=== PATIENT | female | born 1960 | race Caucasian/White ===

== ENCOUNTER → 2025-01-16 | Outpatient (CLI) | payer MEDICARE, MEDICAID, SELFPAY ==
--- NOTE | 2025-01-16 15:59 | XR_ITS ---
Examination: Bilateral AP knees single view PA lateral axial right and left knees total 6 views TECHNIQUE: Bilateral AP knees standing single view Standing PA, lateral, axial right and left knees 6 views total 7 views Date and time: January 16, 2025 1605 hours INDICATIONS: Patient fell 2 weeks ago with injury to both knees, bilateral knee pain 5 years. FINDINGS: Moderate osteopenia Severe narrowing, [id number], medial joint spaces right and left knee. Significant osteoarthritis lateral patellofemoral joints No patellar dislocation IMPRESSION: Advanced bilateral tricompartment osteoarthritis Severe narrowing, [id number] medial joint spaces right and left knee.
== END | disposition home or self-care (01) ==
LOC: COPL 16:44 → CDIM 02-04 13:13
PROVIDERS: PCP Family Medicine; Referring Provider Orthopaedic Surgery Adult Reconstructive Orthopaedic Surgery; Visit Provider Orthopaedic Surgery Adult Reconstructive Orthopaedic Surgery
DX: M17.0 Bilateral primary osteoarthritis of knee (principal); M25.862 Other specified joint disorders, left knee; M25.861 Other specified joint disorders, right knee
CPT/HCPCS: 73564

== ENCOUNTER 2025-01-22 14:04 | Outpatient (AMB) | payer MEDICARE, MEDICAID, SELFPAY ==
--- NOTE | 2025-01-22 14:09 | PD.ORTHCLVIS ---
Vital signs 01/22/25 14:15 Height 1.65 m Height Method Measured Weight 105.375 kg Weight Measurement Method Standing Scale BMI 38.6 BP 125/84 Blood Pressure Source Automatic Cuff Blood Pressure Location Left Upper Arm Position Sitting Respiration 18 Pulse 104 H Pulse Source Monitor Temp 97.7 F Temp Source Temporal Artery Scan Pulse Oximetry (%) 95 Oxygen Delivery Method Room Air Med/Allergies Allergies & Medications Allergies No Known Allergies Allergy (Verified 01/22/25 14:16) Medication Reconciliation Unobtainable 04/12/23 [History Confirmed 01/22/25] Exam Exam Patient is in no acute distress and is cooperative with the examination today. Breathing is nonlabored. In no respiratory distress. Bilateral extremities were evaluated and demonstrates sensation intact to light touch. Palpable pedal pulses are present. No significant edema is present. Bilateral hips were examined. The patient has no pain with log roll of the hips. Internal rotation to 30 degrees and external rotation to 30 degrees is painless. Negative FADIR. The left knee was examined. The left knee is in varus alignment. Range of motion from 0-115 degrees. Knee is stable to varus and valgus as well as AP translation with <5mm. Patient has a negative McMurrays. There is no pain with patellofemoral compression and no crepitus noted. The knee is tender to palpation medially. The right knee was also examined. The right knee is in varus alignment. Range of motion from 0-120 degrees. Knee is stable to varus and valgus as well as AP translation with <5mm. Patient has a negative McMurrays. There is no pain with patellofemoral compression and no crepitus noted. The knee is tender to palpation medially. Bilateral knee x-rays were reviewed by me today. This demonstrates complete joint space obliteration medially. There is varus deformity Assessment and Plan Problem List (1) Arthritis of both knees: Status: Acute Plan: Patient is a 62-year-old female with bilateral knee pain and osteoarthritis. Pain is of significant severity and is affecting her quality of life. She cannot take anti-inflammatories because of her recent gastric surgery. She has tried over 3 injections and NSAIDs. The pain is affecting her quality of life and happiness. The nature and purpose of the total knee replacement, alternative method(s) of treatment, the material risks involved, and the possibility of complications were fully explained to the patient. The patient does NOT have any of the following contraindications to TKA: - Active infection of the knee joint, OR - Active systemic bacteremia, OR - Active skin infection or open wound at surgical site, OR - Neuropathic arthritis, OR - Severe, rapidly progressive neurological disease, OR - Severe medical condition that makes risks of surgery outweigh the potential benefit The patient was told the most common risks and complications associated with a total knee replacement include, but are not limited to: blood clots in the leg, fatal pulmonary embolism, dislocation of the prosthesis, intraoperative and postoperative fractures of the femur or tibia, infection, failure of the prosthesis or grafting materials, complications from anesthesia, reactions to blood transfusions, postoperative leg length inequality, instability of the knee replacement, nerve damage or injury, vascular injury, delayed wound healing, infection, other injury or even . In addition, there are risks associated with anesthesia given during this operation. Also, the patient was told that after undergoing a total knee replacement there may still be persistent pain or disability. The patient was informed that the success of this operation in part depends upon the mechanical devices which are going to be implanted and that these devices can fail or malfunction, and may need to be repaired or replaced and there are no guarantees as to the longevity of this device or its parts and that it or its parts could fail prematurely. The patient was also notified that during the course of surgery, there may be a need to use bone graft from donors, and that any bone graft used will be carefully screened for communicable diseases, including AIDS, hepatitis, Juan Carlos-Creutzfeldt, or other diseases, but despite the screening procedures, there is a small chance that they could contract one of these diseases. Finally, the patient was asked to follow completely and fully with all advice and recommended treatments, and that recovery and ultimate outcome are affected by their compliance with recommended treatment. We discussed the risks, benefits and treatment alternatives, and the patient is interested in proceeding with surgery. We will try to set this up as expeditiously as possible. Recommend knee cortisone injection as patient would like to proceed with conservative treatment at this time. The risks and benefits of the procedure were reviewed with the patient and patient gave verbal consent to continue with the procedure. Procedure: performed by Dr. Ortiz Using sterile technique the left knee was thoroughly prepped with alcohol, and approximately 1 cc of Depo-Medrol 80mg/mL and 4 cc of 0.2% ropivacaine was injected without resistance into the medial tibial femoral joint space. The patient tolerated the procedure. (2) Bilateral knee pain: Status: Acute Office Procedures GNS Level of Care Nursing/Assessment Patient Status: Established Patient Nursing Assessment/Reassesment: Medication Reconciliation, Orthostatic Vitals, Update PMH in EMR and Vital Signs Coordination of Care: Complex Care and Chronic Disease 1-5, Education Complex Pt/Fam, Consent,records obtained, informed consent, Lab and Imaging orders, Results/Orders obtained and Staff clarify orders Established Patient Charge Established Patient Point Assignment: 120 Established Patient Point Charge: EP Level 4 (120-155) Surgical Proc/IM SQ injection Major Surgical Procedure: Yes (LEFT KNEE INJECTION) Medication Given Medication Given Medication Given: Yes Documented Dose Given: 1 Route: Infiitration Medication Given Medication Given Medication Given: Yes Documented Dose Given: 4 Route: Infiitration Office Meds methylprednisolone acetate 80 mg/mL suspension for injection Performing Provider: Alek Ortiz MD Performing Location: [facility] Administered by: Alek Ortiz MD on 01/22/25 14:32 Dose Route Admin Location Dispensed Lot Number Expiration Date Package [facility] [employer] Data Management Manager 80 mg intra-articular 1 mL [id number] 10/19/26 [address]-9 [id number] [employer] ropivacaine (PF) 2 mg/mL (0.2 %) injection solution Performing Provider: Alek Ortiz MD Performing Location: [facility] Administered by: Alek Ortiz MD on 01/22/25 14:32 Dose Route Admin Location Dispensed Lot Number Expiration Date Package NDC N[employer] Data Management Manager 20 mL Infiltration 20 mL [id number] 06/21/27 27061-966-31 [id number] [facility] Intake Visit Data Collection New Patient or Established: Established Patient (seen at [facility] within 3 years) Reason for Visit:: BILATERAL KNEE PAIN Seen by Clinical Staff ONLY (RN/MA): No Production Control Expediter Required: No PCP or OBGYN visit in last 3 months: Yes Hx Now: No Do You Feel Safe at Home: Yes Authorities Contacted: N/A Questionairres Past Medical History Past Medical History Have you ever been diagnosed with any of the following: Subjective Visit Visit for: follow up visit and knee Immunization / Flu Flu Vaccine in the Last 12 Months: Yes Flu Vaccine Exclusion Criteria: Already Received History of Present Illness Chief complaint: BILATERAL KNEE PAIN Date of injury / onset of symptoms: 10 YEARS AGO Jasper is a pleasant 64-year-old female with a longstanding history of bilateral knee pain and osteoarthritis. The pain is worse on the left. She reports that all her sisters and her family have been planning her knees replaced. She reports that she was post to get her knees replaced 5 years ago but got cold feet and backed out of this. She reports the pain is miserable and is affecting her life. She reports is very hard on stairs and she does not get out of the house because of the pain. She has tried NSAIDS, and over 3 injections. SHe has also tried tramadol. Personal History Occupation: RETIRED BUSDRIVER Red flag PMH: none BMI Counceling provided: Yes Pain Pain level (0-10): 9 Pain location: anterior Pain quality: sharp Pain timing: night, increases with activity and stairs Associated signs & symptoms: none Ambulatory data Ambulatory device: none Treatments Number of previous injections: 0 Improvement with previous injections: No Number of Physical Therapy sessions: 0 Improvement with PT: No Improvement with NSAIDS: no Review of Systems Review of Systems: All systems negative unless otherwise noted in HPI.
[2025-01-22 14:15] VITALS: BP 125/84; PULSE 104; RESP 18; TEMP 36.5; O2SAT 95; BMI 38.6
== END 2025-01-22 14:31 | disposition home or self-care (01) ==
LOC: HODSRG 14:04
PROVIDERS: Supervising Provider Orthopaedic Surgery Adult Reconstructive Orthopaedic Surgery; Visit Provider Orthopaedic Surgery Adult Reconstructive Orthopaedic Surgery
DX: M17.0 Bilateral primary osteoarthritis of knee (principal); M25.562 Pain in left knee; M25.561 Pain in right knee
CPT/HCPCS: 20610; 99214; J1010; J2795; G0463

== ENCOUNTER 2025-05-02 13:57 | Outpatient (AMB) | payer MEDICARE, MEDICAID, SELFPAY ==
[2025-05-02 14:16] VITALS: BP 97/66; PULSE 95; RESP 19; TEMP 36.4; O2SAT 94; BMI 39.5
--- NOTE | 2025-05-02 14:16 | ORTHONT_ITS ---
Vital signs 05/02/25 14:16 Height 1.65 m Height Method Measured Weight 107.728 kg Weight Measurement Method Standing Scale BMI 39.5 BP 97/66 Blood Pressure Source Automatic Cuff Blood Pressure Location Left Upper Arm Position Sitting Respiration 19 Pulse 95 Pulse Source Monitor Temp 97.5 F Temp Source Temporal Artery Scan Pulse Oximetry (%) 94 L Oxygen Delivery Method Room Air Med/Allergies Allergies & Medications Allergies No Known Allergies Allergy (Verified 05/02/25 14:17) Exam Exam Patient is in no acute distress and is cooperative with the examination today. Breathing is nonlabored. In no respiratory distress. Bilateral extremities were evaluated and demonstrates sensation intact to light touch. Palpable pedal pulses are present. No significant edema is present. Bilateral hips were examined. The patient has no pain with log roll of the hips. Internal rotation to 30 degrees and external rotation to 30 degrees is painless. Negative FADIR. The left knee was examined. The left knee is in varus alignment. Range of motion from 0-115 degrees. Knee is stable to varus and valgus as well as AP translation with <5mm. Patient has a negative McMurrays. There is no pain with patellofemoral compression and no crepitus noted. The knee is tender to palpation medially. The right knee was also examined. The right knee is in varus alignment. Range of motion from 0-120 degrees. Knee is stable to varus and valgus as well as AP translation with <5mm. Patient has a negative McMurrays. There is no pain with patellofemoral compression and no crepitus noted. The knee is tender to palpation medially. Bilateral knee x-rays were reviewed by me today. This demonstrates complete joint space obliteration medially. There is varus deformity Assessment and Plan Problem List (1) Arthritis of both knees: Status: Acute Plan: Patient is a 62-year-old female with bilateral knee pain and osteoarthritis. Pain is of significant severity and is affecting her quality of life. She cannot take anti-inflammatories because of her recent gastric surgery. She has tried over 3 injections and NSAIDs. The pain is affecting her quality of life and happiness. She would like to start on the right knee The nature and purpose of the total knee replacement, alternative method(s) of treatment, the material risks involved, and the possibility of complications wer e fully explained to the patient. The patient does NOT have any of the following contraindications to TKA: - Active infection of the knee joint, OR - Active systemic bacteremia, OR - Active skin infection or open wound at surgical site, OR - Neuropathic arthritis, OR - Severe, rapidly progressive neurological disease, OR - Severe medical condition that makes risks of surgery outweigh the potential benefit The patient was told the most common risks and complications associated with a total knee replacement include, but are not limited to: blood clots in the leg, fatal pulmonary embolism, dislocation of the prosthesis, intraoperative and postoperative fractures of the femur or tibia, infection, failure of the prosthesis or grafting materials, complications from anesthesia, reactions to blood transfusions, postoperative leg length inequality, instability of the knee replacement, nerve damage or injury, vascular injury, delayed wound healing, infection, other injury or even . In addition, there are risks associated with anesthesia given during this operation. Also, the patient was told that after undergoing a total knee replacement there may still be persistent pain or disability. The patient was informed that the success of this operation in part depends upon the mechanical devices which are going to be implanted and that these devices can fail or malfunction, and may need to be repaired or replaced and there are no guarantees as to the longevity of this device or its parts and that it or its parts could fail prematurely. The patient was also notified that during the course of surgery, there may be a need to use bone graft from donors, and that any bone graft used will be carefully screened for communicable diseases, including AIDS, hepatitis, Juan Carlos-Creutzfeldt, or other diseases, but despite the screening procedures, there is a small chance that they could contract one of these diseases. Finally, the patient was asked to follow completely and fully with all advice and recommended treatments, and that recovery and ultimate outcome are affected by their compliance with recommended treatment. We discussed the risks, benefits and treatment alternatives, and the patient is interested in proceeding with surgery. We will try to set this up as expeditiously as possible. (2) Bilateral knee pain: Status: Acute Office Procedures GNS Level of Care Nursing/Assessment Patient Status: Established Patient Nursing Assessment/Reassesment: Medication Reconciliation, Update PMH in EMR and Vital Signs Coordination of Care: Complex Care and Chronic Disease 1-5, Education Complex Pt/Fam, Consent,records obtained, informed consent, Results/Orders obtained and Staff clarify orders Established Patient Charge Established Patient Point Assignment: 95 Established Patient Point Charge: EP Level 3 (80-115) Surgical Proc/IM SQ injection Minor Surgical Procedure: Yes (LEFT KNEE INJECTION) Medication Given Medication Given Medication Given: Yes Documented Dose Given: 1 Route: Infiitration Medication Given Medication Given Medication Given: Yes Documented Dose Given: 4 Route: Infiitration Office Meds methylprednisolone acetate 80 mg/mL suspension for injection Performing Provider: Alek Ortiz MD Performing Location: [facility] Administered by: Alek Ortiz MD on 05/02/25 15:07 Dose Route Admin Location Dispensed Lot Number Expiration Date Pack age [facility] Senior [employer] Programmer 80 mg intra-articular 1 mL [id number] 01/19/27 [address]-6 [id number] [employer] ropivacaine (PF) 2 mg/mL (0.2 %) injection solution Performing Provider: Alek Ortiz MD [facility] Administered by: Alek Ortiz MD on 05/02/25 15:07 Dose Route Admin Location Dispensed Lot Number Expiration Date Pack age [facility] Senior Clinical [employer] Programmer 20 mL Infiltration 20 mL [id number] 06/21/27 58762-817-50 [id number] [facility] Intake Visit Data Collection New Patient or Established: Established Patient (seen at [facility] within 3 years) Reason for Visit:: 3 MONTH F/U KNEE INJECTION Seen by Clinical Staff ONLY (RN/MA): No Hiv Prevention Specialist Required: No PCP or OBGYN visit in last 3 months: Yes Hx Now: No Do You Feel Safe at Home: Yes Authorities Contacted: N/A Questionairres Past Medical History Past Medical History Have you ever been diagnosed with any of the following: Subjective Visit Visit for: follow up visit and knee Immunization / Flu Flu Vaccine in the Last 12 Months: Yes Flu Vaccine Exclusion Criteria: Already Received History of Present Illness Chief complaint: 3 MONTH F/U KNEE INJECTION Date of injury / onset of symptoms: 10 YEARS AGO Jasper is a pleasant 64-year-old female with a longstanding history of bilateral knee pain and osteoarthritis. The pain is worse on the right. She reports that all her sisters and her family have been planning her knees replaced. She reports that she was post to get her knees replaced 5 years ago but got cold feet and backed out of this. She reports the pain is miserable and is affecting her life. She reports is very hard on stairs and she does not get out of the house because of the pain. She has tried NSAIDS, and over 3 injections. SHe has also tried tramadol. She had an injection in the left. Personal History Occupation: RETIRED BUSDRIVER Red flag PMH: none BMI Counceling provided: Yes Pain Pain level (0-10): 6 Pain location: anterior Pain quality: sharp Pain timing: night, increases with activity and stairs Associated signs & symptoms: none Ambulatory data Ambulatory device: none Treatments Number of previous injections: 0 Improvement with previous injections: No Number of Physical Therapy sessions: 0 Improvement with PT: No Improvement with NSAIDS: no Review of Systems Review of Systems: All systems negative unless otherwise noted in HPI.
== END 2025-05-02 14:44 | disposition home or self-care (01) ==
LOC: HODSRG 13:57
PROVIDERS: PCP Family Medicine; Referring Provider Family Medicine; Supervising Provider Orthopaedic Surgery Adult Reconstructive Orthopaedic Surgery; Visit Provider Orthopaedic Surgery Adult Reconstructive Orthopaedic Surgery
DX: M17.0 Bilateral primary osteoarthritis of knee (principal); M25.561 Pain in right knee; M25.562 Pain in left knee
CPT/HCPCS: 20610; 99213; J1010; J2795; G0463